=== PATIENT | female | born 1980 | race Caucasian/White ===

== ENCOUNTER 2024-10-23 23:13 | Emergency (ER) | payer MEDICAID, SELFPAY ==
[2024-10-23 23:13] VITALS: BMI 56.5
[2024-10-23 23:29] VITALS: BP 130/78; PULSE 88; RESP 18; TEMP 36.6; O2SAT 99
--- NOTE | 2024-10-23 23:32 | XR_ITS ---
EXAMINATION: Ankle, left 3 views . Technique: Ankle AP, oblique, lateral 3 views Date and time of exam: October 23, 1999 2538 hours Indications: Patient fell today with injury to ankle, ankle pain. Findings: Acute fracture distal fibular shaft No significant displacement No ankle dislocation Impression: Acute fracture distal fibular shaft
--- NOTE | 2024-10-23 23:33 | EDNOTE_ITS ---
Lower Extremity Injury RME/HPI General Chief Complaint: Fall Stated Complaint: FELL, LEFT ANKLE /LEG INJURY Time Seen by Provider: 10/23/24 23:31 Source: patient, RN notes reviewed and old records reviewed Arrival date/time: 10/23/24 23:13 Mode of arrival: wheelchair Limitations: no limitations RME / HPI RME / HPI Narrative: 44yof presents to ED for ankle pain s/p injury tonight. Patient reports she tripped while walking and rolled her left ankle, c/o lateral pain and swelling. No deformity or numbness/tingling reported. 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 Related Data Home Medications ?Medication ?Instructions ?Recorded ?Confirmed hydrocodone 10 mg-acetaminophen 1 tab PO PRN PRN Pain 08/17/18 10/18/19 325 mg tablet ([place]) dicyclomine 10 mg/mL intramuscular 20 mg PRN PRN Abdominal Pain 11/27/18 10/18/19 solution (Bentyl) tizanidine 4 mg capsule (Zanaflex) 4 mg PO HS 11/27/18 10/18/19 vitamin D3 500 unit-vit K 500 See Rx Instructions .Route .COMPLEX 11/27/18 10/18/19 mcg-berberine 90 mg-hops 370 mg tablet Previous Rx's ?Medication ?Instructions ?Recorded acetaminophen 500 mg capsule 1,000 mg (2 x 500 mg) PO Q6H PRN 10/25/20 fever or pain #30 caps ibuprofen 800 mg tablet 800 mg PO TID PRN pain #30 tabs 10/25/20 diphenhydramine HCl 25 mg tablet 50 mg (2 x 25 mg) PO QID PRN 01/20/21 (Benadryl Allergy) allergy symptoms #30 tabs epinephrine 0.3 mg/0.3 mL 0.3 ml subcut .once PRN 01/20/21 injection, auto-injector hypersensitivity reaction #2 ea alprazolam 0.5 mg tablet (Xanax) 0.5 mg PO TID PRN sleep #30 tabs 01/24/21 ciprofloxacin HCl 500 mg tablet 500 mg PO BID #14 tabs 02/12/21 (Cipro) metronidazole 500 mg tablet 500 mg PO BID #14 tabs 02/12/21 (Flagyl) ibuprofen 600 mg tablet 600 mg PO Q6H PRN pain #30 tabs 10/23/24 Allergies Allergy/AdvReac Type Severity Reaction Status Date / Time aloe vera Allergy Severe HIVES Verified 02/22/22 08:37 erythromycin base Allergy Severe HIVES, Verified 02/22/22 08:37 ITCHING morphine Allergy Severe itching Verified 02/22/22 08:37 and rash Review of Systems Review of Systems Systems Reviewed: All systems reviewed, normal except as documented Musculoskeletal Musculoskeletal: Reports arthralgias, Denies deformity, Reports joint swelling, Reports limited range of motion, Denies numbness and Denies tingling Neurologic Neurologic: Denies numbness and Denies tingling Past Medical History Past Medical History CARDIAC: Positive Hypercholesterolemia and Hypertension GASTROINTESTINAL: Positive Obesity ENDOCRINE: Positive Hypothyroidism Surgical History SURGICAL: Positive Hx Cholecystectomy OTHER SURGICAL HX: back surgery Social History SMOKING STATUS: Current every day smoker (vapes) SUBSTANCE USE: does not use ALCOHOL: Never ED Exam General Limitations: Present no limitations General appearance: Present alert, in no apparent distress and obese Head Head exam: Present atraumatic and normocephalic Eye Eye exam: Present normal appearance, PERRL and EOMI ENT ENT exam: Present normal exam and mucous membranes moist Neck Neck exam: Present normal inspection and full ROM Chest Chest inspection: Present normal inspection and symmetric chest wall rise Respiratory Respiratory exam: Present normal lung sounds bilaterally; Absent respiratory distress Cardiovascular Cardiovascular exam: Present regular rate and normal rhythm Extremities Exam Extremities exam: Present other (Tenderness and swelling just proximal to left lateral ankle. Limited ROM 2/2 pain. Able to wiggle all toes. 2+ pedal pulses, sensation intact) Neurological Exam Neurological exam: Present alert and oriented X3 Psychiatric Psychiatric exam: Present normal affect and normal mood Skin Skin exam: Present warm, dry, intact and normal color Course Quality Measures none Orders Category Date Time Status Crutches .NOW Care 10/23/24 23:47 Completed Splint / Immobilizer STAT Care 10/23/24 23:47 Completed XR ankle comp LT min 3V Stat Exams 10/23/24 23:32 Completed HYDROcodone*/APAP 7.5/325 [[place] 7.5/325] Med 10/23/24 23:32 Discontinued 1 tab PO X1 ONE Vital Signs Vital signs: Vital Signs Temperature 98 F 10/23/24 23:29 Pulse Rate 88 10/23/24 23:29 Respiratory Rate 18 10/23/24 23:29 Blood Pressure 130/78 10/23/24 23:29 Pulse Oximetry (%) 99 10/23/24 23:29 Oxygen Delivery Method Room Air 10/23/24 23:29 Procedures -ED Orthopedic Splinting/Casting Injury #1: Side: left Lower Extremity Injury Location: lower leg Lower Extremity Immobilizer: posterior splint (Short leg) Other Orthopedic Equipment: crutches Splint Fabrication: Clinician Made Type: Posterior Leg Reason for Splint: Improve Function, Optimal Positioning, Pain Management, Prevent Deformities and Support Joint/Muscle Circulation Distal to Splint: Yes Movement Distal to Splint: Yes Senation Distal to Splint: Yes Tolerance: Tolerates Well Extremity Injury, Lower MDM Narrative MDM Narrative:: 44yof presents to ED for ankle pain s/p injury tonight. Patient reports she tri pped while walking and rolled her left ankle, c/o lateral pain and swelling. No deformity or numbness/tingling reported. 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 Patient is neurovascularly intact, compartments soft. Encouraged RICE therapy, pain management prn. Patient sees a pain management physician and has [place] at home. Ortho referral given for follow-up and further management. Stable for discharge, RTED precautions given. Patient data External records reviewed:: [facility] previous records (02/22/2022 ED visit for abdominal pain) Clinical information provided by:: patient Social determinants that could affect healthcare access:: other (specify) (Unemployed) Patient has the following chronic illnesses:: Obesity, hypertension How is presenting disease/condition affected by chronic disease/condition?: exacerbated by Evaluation data The following diagnostics were reviewed and interpreted by me:: radiology exam(s) Lab and/or radiology exams considered but not ordered:: None Interpretation Summary: Ankle x-rays: Distal fibula fracture per my read Medications / Prescriptions Medications or Prescriptions considered but not ordered:: None Medication administrations:: Medication Administration History Discontinued Medications Hydrocodone Bitart/Acetaminophen (Hydrocodone/Ap[place] 7.5/325 Tablet) 1 tab PO X1 ONE Stop: 10/23/24 23:33 Last Admin: 10/23/24 23:36 Dose: 1 tab Documented By: OA Above medication administered in ED Consultations Consultation(s) initiated? (list below): No Diagnosis Extremity Injury, Lower Differential Diagnosis: other (Fracture, dislocation, sprain, strain, contusion, MSK pain) Most likely diagnosis given after review of the tests above:: Left fibula fracture Admission Indicated Admission indicated?: not indicated Admission Request Was there a request for admission?: No Disposition Plan Disposition Plan: Discharge Discharge Attestation Discharge Attestation: The patient and all family members were given an opportunity to ask questions and understood the discharge instructions. Discharge instructions specifically effects, indications for sooner follow up or return to the emergency department, and the expected course of current diagnosis. Patient condition: Stable Discharge Plan Plan Patient Disposition: HOME (Self Care) Patient condition on transfer: Stable Prescriptions/Referrals Prescriptions/Med Rec: New ibuprofen 600 mg tablet 600 mg PO Q6H PRN (Reason: pain) Qty: 30 0RF No Action ibuprofen 800 mg tablet 800 mg PO TID PRN (Reason: pain) Qty: 30 0RF acetaminophen 500 mg capsule 1,000 mg PO Q6H PRN (Reason: fever or pain) Qty: 30 0RF epinephrine 0.3 mg/0.3 mL auto-injector 0.3 ml subcut .once PRN (Reason: hypersensitivity reaction) Qty: 2 0RF diphenhydramine HCl [Benadryl Allergy] 25 mg tablet 50 mg PO QID PRN (Reason: allergy symptoms) Qty: 30 0RF alprazolam [Xanax] 0.5 mg tablet 0.5 mg PO TID PRN (Reason: sleep) Qty: 30 0RF metronidazole [Flagyl] 500 mg tablet 500 mg PO BID Qty: 14 0RF ciprofloxacin HCl [Cipro] 500 mg tablet 500 mg PO BID Qty: 14 0RF hydrocodone-acetaminophen [[place]] 10-325 mg Tablet 1 tab PO PRN PRN (Reason: Pain) dicyclomine [Bentyl] 10 mg/mL Solution 20 mg PRN PRN (Reason: Abdominal Pain) tizanidine [Zanaflex] 4 mg Capsule 4 mg PO HS vit D3-vit E-ovmhgiydm-adtg [id number] wehh-ovo-up-mg Tablet See Rx Instructions .ROUTE .COMPLEX Rx Instructions: 50,000 units orally weekly Referrals: Dae Dorman MD [Physician] - In 1 week Problem List Clinical Impression: Fracture of distal end of left fibula Patient/Caregiver Discharge Instructions Education Materials: ED Ankle Fracture, Distal Fibula Print Language: Amharic Stand Alone Forms: Linda Award Info., Work/School Release, Patient Portal Info Letter PA/SCOURING PADS SUPERVISOR Supervising Physician PA/SCOURING PADS SUPERVISOR Supervising Physician: Felipe
[2024-10-23] MEDS: HYDROcodone/APAP 7.5/325 TABLET 1 TAB PO (23:36)
== END 2024-10-24 00:30 | disposition home or self-care (01) ==
PROVIDERS: Emergency Provider Emergency Medicine; PCP Nurse Practitioner Family
DX: S82.832A Other fracture of upper and lower end of left fibula, initial encounter for closed fracture (principal); W01.0XXA Fall on same level from slipping, tripping and stumbling without subsequent striking against object, initial encounter; Y93.01 Activity, walking, marching and hiking
CPT/HCPCS: 29515; 73610; 99283; A9270

== ENCOUNTER → 2024-12-09 | Outpatient (CLI) | payer MEDICAID, SELFPAY ==
--- NOTE | 2024-12-09 | XR_ITS ---
EXAMINATION: Ankle, left 3 views . Technique: Ankle AP, oblique, lateral 3 views Date and time of exam: December 09, 2024 1308 hrs. Indications: Left ankle fracture October 23, 2024 Findings: Significant partial healing fracture distal fibular shaft with stable and satisfactory alignment Impression: Significant partial healing fracture distal fibular shaft with stable and satisfactory alignment
== END | disposition home or self-care (01) ==
LOC: CDIM 11:52
PROVIDERS: PCP Family Medicine; Referring Provider Podiatrist; Visit Provider Podiatrist
DX: S82.402D Unspecified fracture of shaft of left fibula, subsequent encounter for closed fracture with routine healing (principal); X58.XXXD Exposure to other specified factors, subsequent encounter
CPT/HCPCS: 73610

== ENCOUNTER → 2025-02-10 | Outpatient (CLI) | payer MEDICAID, SELFPAY ==
--- NOTE | 2025-02-10 10:55 | XR_ITS ---
EXAMINATION: Ankle, left 3 views . Technique: Ankle AP, oblique, lateral 3 views Date and time of exam: February 10, 2025 1130 hours INDICATIONS: Acute ankle fractures October 23, 2024 FINDINGS: Significant bone fracture distal fibular shaft with stable and satisfactory alignment No ankle dislocation IMPRESSION: Significant healing fracture distal fibular shaft with stable and satisfactory alignment
== END | disposition home or self-care (01) ==
LOC: CDIM 10:37
PROVIDERS: PCP Physician Assistant Medical; Referring Provider Podiatrist; Visit Provider Podiatrist
DX: S82.402D Unspecified fracture of shaft of left fibula, subsequent encounter for closed fracture with routine healing (principal); X58.XXXD Exposure to other specified factors, subsequent encounter
CPT/HCPCS: 73610

== ENCOUNTER → 2025-03-25 | Outpatient (CLI) | payer MEDICAID, SELFPAY ==
--- NOTE | 2025-03-25 10:30 | XR_ITS ---
EXAMINATION: Ankle, left 3 views . Technique: Ankle AP, oblique, lateral 3 views Date and time of exam: March 25, 2025 1047 hours INDICATIONS: Acute ankle fracture October 23, 2024, distal fibular shaft fracture FINDINGS: Complete healing fracture distal fibular shaft compared with October 23, 2024 No new fracture No ankle dislocation IMPRESSION: Healed fracture distal fibular shaft with satisfactory alignment
== END | disposition home or self-care (01) ==
PROVIDERS: PCP Physician Assistant Medical; Referring Provider Podiatrist; Visit Provider Podiatrist
DX: S82.402K Unspecified fracture of shaft of left fibula, subsequent encounter for closed fracture with nonunion (principal); X58.XXXD Exposure to other specified factors, subsequent encounter
CPT/HCPCS: 73610

== ENCOUNTER 2025-03-26 14:02 | Emergency (ER) | payer MEDICAID, SELFPAY ==
[2025-03-26 14:03] VITALS: BMI 54.3
[2025-03-26 14:34] VITALS: BP 140/93; PULSE 120; RESP 18; TEMP 36.6; O2SAT 98
--- NOTE | 2025-03-26 14:52 | XR_ITS ---
Examination: Transvaginal ultrasound of the pelvis, complete Technique: Transvaginal sonographic images pelvis performed using green scale imaging Exam date and time: March 26, 2025 1545 hours INDICATIONS: Heavy vaginal bleeding beginning 3 days ago FINDINGS: Uterus 8.5 cm no uterine mass or intrauterine gestation 4 mm benign cyst in the endometrial canal Endometrial stripe 1.7 cm Ovaries obscured by bowel gas and by the patient's size IMPRESSION: Limited study No uterine mass or intrauterine gestation.
--- NOTE | 2025-03-26 14:54 | PD.EDVAGBL ---
ED OB Contraction Preg RMI/HPI General Chief complaint: Vaginal Bleeding Stated complaint: EXCESSIVE VAGINAL BLEEDING W/ BLOOD CLOTS Time Seen by Provider: 03/26/25 14:24 Arrival date/time: 03/26/25 14:02 Limitations: no limitations RME / HPI RME / HPI Narrative: 44-year-old female with past medical history of hypertension on GLP inhibitor for weight loss presents for evaluation of vaginal bleeding x 1 day. Patient reports intermittent pelvic cramping and states she is passing numerous clots the size of a half dollar . She endorses weakness. Denies nausea, vomiting, fever, chest pain. Patient reports last normal menstrual period x 3 days ago. Denies history of irregular vaginal bleeding. Patient states that she has been on the weight loss medication x 1 month with no reported side effects. Related Data Home Medications ?Medication ?Instructions ?Recorded ?Confirmed hydrocodone 10 mg-acetaminophen 1 tab PO PRN PRN Pain 08/17/18 10/18/19 325 mg tablet ([place]) dicyclomine 10 mg/mL intramuscular 20 mg PRN PRN Abdominal Pain 11/27/18 10/18/19 solution (Bentyl) tizanidine 4 mg capsule (Zanaflex) 4 mg PO HS 11/27/18 10/18/19 vitamin D3 500 unit-vit K 500 See Rx Instructions .Route .COMPLEX 11/27/18 10/18/19 mcg-berberine 90 mg-hops 370 mg tablet Previous Rx's ?Medication ?Instructions ?Recorded acetaminophen 500 mg capsule 1,000 mg (2 x 500 mg) PO Q6H PRN 10/25/20 fever or pain #30 caps ibuprofen 800 mg tablet 800 mg PO TID PRN pain #30 tabs 10/25/20 diphenhydramine HCl 25 mg tablet 50 mg (2 x 25 mg) PO QID PRN 01/20/21 (Benadryl Allergy) allergy symptoms #30 tabs epinephrine 0.3 mg/0.3 mL 0.3 ml subcut .once PRN 01/20/21 injection, auto-injector hypersensitivity reaction #2 ea alprazolam 0.5 mg tablet (Xanax) 0.5 mg PO TID PRN sleep #30 tabs 01/24/21 ciprofloxacin HCl 500 mg tablet 500 mg PO BID #14 tabs 02/12/21 (Cipro) metronidazole 500 mg tablet 500 mg PO BID #14 tabs 02/12/21 (Flagyl) ibuprofen 600 mg tablet 600 mg PO Q6H PRN pain #30 tabs 10/23/24 ondansetron 4 mg disintegrating 4 mg PO Q8H PRN nausea and 03/26/25 tablet vomiting #14 tabs Allergies Allergy/AdvReac Type Severity Reaction Status Date / Time aloe vera Allergy Severe HIVES Verified 03/26/25 14:05 erythromycin base Allergy Severe HIVES, Verified 03/26/25 14:05 ITCHING morphine Allergy Severe itching Verified 03/26/25 14:05 and rash Review of Systems Constitutional Constitutional: Denies chills, Denies fever(s), Denies headache(s), Denies lethargy and Denies night sweats Eyes Eyes: Denies blurry vision and Denies change in vision ENT Ears, Nose, Mouth, and Throat: Denies disequilibrium, Denies dizziness, Denies headache(s) and Denies neck pain Cardiovascular Cardiovascular: Denies chest pain, Denies dyspnea and Denies palpitations Respiratory Respiratory: Denies cough, Denies dyspnea and Denies wheezing Gastrointestinal Gastrointestinal: Denies abdominal pain, Denies diarrhea, Denies loose stools, Denies melena, Denies nausea and Denies vomiting Genitourinary Genitourinary: Reports abnormal vaginal bleeding, Denies dysuria, Denies flank pain, Reports metrorrhagia, Reports pelvic pain, Denies vaginal discharge, Denies vaginal odor and Denies vaginal pruritus Musculoskeletal Musculoskeletal: Reports back pain, Denies myalgias, Denies neck pain, Denies numbness, Denies stiffness and Denies tingling Integumentary/Breasts Skin/Breast: Denies new lesions and Denies rash Neurologic Neurologic: Denies disequilibrium, Denies dizziness, Denies localized weakness, Denies headache(s), Denies numbness and Denies tingling Endocrine Endocrine: Denies palpitations Allergic/Immunologic Allergic/Immunologic: Denies wheezing Past Medical History Past Medical History CARDIAC: Positive Hypercholesterolemia and Hypertension; Negative Cardiac Disorders or Congestive Heart Failure RESPIRATORY: Negative Chronic Obstructive Pulmonary Disease (COPD) or Asthma GASTROINTESTINAL: Positive Gastrointestinal Disorders, Gall Bladder Disease and Obesity GENITOURINARY: Negative Renal Disease ENDOCRINE: Positive Hypothyroidism; Negative Diabetes Mellitus Type 1 or Diabetes Mellitus Type 2 HEMATOLOGIC: Negative Sickle Cell Disease Social History SMOKING STATUS: Current every day smoker SUBSTANCE USE: does not use ED Exam General Limitations: Present no limitations General appearance: Present alert and in no apparent distress Head Head exam: Present atraumatic and normocephalic Eye Eye exam: Present normal appearance and EOMI; Absent scleral icterus ENT ENT exam: Present normal exam, normal oropharynx and mucous membranes moist Neck Neck exam: Present normal inspection and full ROM Chest Chest inspection: Present normal inspection and symmetric chest wall rise Respiratory Respiratory exam: Present normal lung sounds bilaterally; Absent respiratory distress Cardiovascular Cardiovascular exam: Present tachycardia and +S1 Abdominal Exam Abdominal exam: Absent soft, distention, tenderness, guarding, rebound or rigidity External exam: Absent erythema, tenderness or swelling Speculum exam: Present vaginal bleeding; Absent laceration Extremities Exam Extremities exam: Present normal inspection and full ROM Back Exam Back exam: Present normal inspection; Absent full ROM, tenderness, CVA tenderness (R) or CVA tenderness (L) Neurological Exam Neurological exam: Present alert and normal gait Psychiatric Psychiatric exam: Present normal affect Skin Skin exam: Present warm and dry Course Quality Measures none Orders Category Date Time Status US transvaginal Stat Exams 03/26/25 14:52 Completed CBC Stat Lab 03/26/25 15:03 Completed CMP [Comprehensive Metabolic Panel] Stat Lab 03/26/25 15:03 Completed HCG Qualitative,Urine Stat Lab 03/26/25 14:50 Completed UA [Urinalysis] Stat Lab 03/26/25 14:50 Completed Acetaminophen Tab [Tylenol Tab] Med 03/26/25 14:52 Discontinued 650 mg PO X1 ONE Vital Signs Vital signs: Vital Signs Temperature 98 F 03/26/25 14:34 Pulse Rate 120 H 03/26/25 14:34 Respiratory Rate 18 03/26/25 14:34 Blood Pressure 140/93 H 03/26/25 14:34 Pulse Oximetry (%) 98 03/26/25 14:34 Oxygen Delivery Method Room Air 03/26/25 14:34 Pulse ox 98% on room air, within normal limits. Vaginal Bleeding MDM Narrative MDM Narrative: Very pleasant 44-year-old female presented for vaginal bleeding. Patient reported last menstrual cycle ended last week. Vital signs significant for tachycardia. Patient denied chest pain and cardiovascular history therefore cardiac workup was initially deferred. Labs reassuring as patient was not anemic. No evidence of sepsis or endorgan damage. Transvaginal ultrasound limited given patient's body habitus, however no intrauterine and negative hCG therefore less concern for ectopic or missed . Pelvic exam today showed scant blood clots in the vaginal canal with no laceration. Cervical os was closed. Ultimately the patient reported that her symptoms improved while she was in the ED. We discussed that she needs to follow-up with her primary care provider within the next week and return to the ED if her symptoms worsen or change. Patient stable at time of discharge. Patient data External records reviewed:: [facility] previous records Clinical information provided by:: patient and family Social determinants that could affect healthcare access:: other (specify) Patient has the following chronic illnesses:: Hypertension. How is presenting disease/condition affected by chronic disease/condition?: uneffected by Evaluation data The following diagnostics were reviewed and interpreted by me:: lab results and radiology exam(s) Lab and/or radiology exams considered but not ordered:: Considered not ordered. Interpretation Summary: Mild leukocytosis without shift. No anemia requiring emergent transfusion. Normal coags. No gross electrolyte abnormality or evidence of endorgan damage. UA significant for hematuria without sign of cystitis. No pancreatitis. US read: FINDINGS: Uterus 8.5 cm no uterine mass or intrauterine gestation 4 mm benign cyst in the endometrial canal Endometrial stripe 1.7 cm Ovaries obscured by bowel gas and by the patient's size IMPRESSION: Limited study No uterine mass or intrauterine gestation. Medications / Prescriptions Medications or Prescriptions considered but not ordered:: Rx given. Medication administrations:: Medication Administration History Discontinued Medications Acetaminophen (Acetaminophen 325 Mg Tablet) 650 mg PO X1 ONE Stop: 03/26/25 14:53 Last Admin: 03/26/25 14:56 Dose: 650 mg Documented By: CON Rx given. Consultations Consultation(s) initiated? (list below): No Diagnosis Vaginal Bleeding Differential Diagnosis: dysfunctional uterine bleeding, menometrorrhagia, ectopic without intrauterine , vaginal bleeding and other Most likely diagnosis given after review of the tests above:: Menometrorrhagia. Admission Indicated Admission indicated?: not indicated Admission Request Was there a request for admission?: No Disposition Plan Disposition Plan: Discharge Discharge Attestation Discharge Attestation: The patient and all family members were given an opportunity to ask questions and understood the discharge instructions. Discharge instructions specifically effects, indications for sooner follow up or return to the emergency department, and the expected course of current diagnosis. Patient condition: Stable Discharge Plan Plan Patient Disposition: HOME (Self Care) Discharge Disposition comment: stable Prescriptions/Referrals Prescriptions/Med Rec: New ondansetron 4 mg tablet,disintegrating 4 mg PO Q8H PRN (Reason: nausea and vomiting) Qty: 14 0RF No Action ibuprofen 800 mg tablet 800 mg PO TID PRN (Reason: pain) Qty: 30 0RF acetaminophen 500 mg capsule 1,000 mg PO Q6H PRN (Reason: fever or pain) Qty: 30 0RF epinephrine 0.3 mg/0.3 mL auto-injector 0.3 ml subcut .once PRN (Reason: hypersensitivity reaction) Qty: 2 0RF diphenhydramine HCl [Benadryl Allergy] 25 mg tablet 50 mg PO QID PRN (Reason: allergy symptoms) Qty: 30 0RF alprazolam [Xanax] 0.5 mg tablet 0.5 mg PO TID PRN (Reason: sleep) Qty: 30 0RF metronidazole [Flagyl] 500 mg tablet 500 mg PO BID Qty: 14 0RF ciprofloxacin HCl [Cipro] 500 mg tablet 500 mg PO BID Qty: 14 0RF hydrocodone-acetaminophen [[place]] 10-325 mg Tablet 1 tab PO PRN PRN (Reason: Pain) dicyclomine [Bentyl] 10 mg/mL Solution 20 mg PRN PRN (Reason: Abdominal Pain) tizanidine [Zanaflex] 4 mg Capsule 4 mg PO HS vit D3-vit D-[id number]-nhfz [id number] iqgs-rhh-kp-mg Tablet See Rx Instructions .ROUTE .COMPLEX Rx Instructions: 50,000 units orally weekly ibuprofen 600 mg tablet 600 mg PO Q6H PRN (Reason: pain) Qty: 30 0RF Referrals: Carrie Han PA-C [Primary Care Provider] - In 1 week Problem List Clinical Impression: Abdominal pain, Vaginal bleeding Impression comment: Follow-up with [facility]PER within the week for further recommendation. Follow-up with primary care for further recommendation regarding GLP inhibitor plan. Take multivitamin as discussed. Continue to take Tylenol or ibuprofen as needed for pain. Take Zofran as needed for nausea vomiting. Return to the ED if your symptoms worsen or change. Patient/Caregiver Discharge Instructions Education Materials: ED Dysfunctional Uterine Bleeding Print Language: Divehi Stand Alone Forms: Linda Felton Info., Patient Portal Info Letter PA/COMMUNICATIONS OFFICER Supervising Physician PA/COMMUNICATIONS OFFICER Supervising Physician: Dr. Friedman
[2025-03-26] MEDS: ACETAMINOPHEN 325 MG TABLET 650 MG PO (14:56)
[2025-03-26 15:03] LABS: Collection Type, Urine Clean Catch
[2025-03-26 15:12] LABS: HCG Qualitative,Urine Negative
[2025-03-26 15:16] LABS: Basophils # (Auto) 0.1 Thou/mm3 (0.0-0.2); Basophils % (Auto) 1 % (0-2.5); Eosinophils # (Auto) 0.3 Thou/mm3 (0.0-0.5); Eosinophils % (Auto) 3 % (0-10); Hematocrit 40.8 % (36.0-46.0); Hemoglobin 13.9 g/dL (12.0-16.0); Immature Granulocytes % (Auto) 0 % (0-0); Immature Granulocytes Auto 0.04 Thou/mm3 (0.00-0.00); Lymphocytes # (Auto) 3.3 Thou/mm3 (1.0-4.8); Lymphocytes % (Auto) 27 % (10-50); Mean Corpuscular HGB Conc 34.1 g/dl (31.0-37.0); Mean Corpuscular Hemoglobin 27.3 pg (25.0-35.0); Mean Corpuscular Volume 80 fL (80-100); Monocytes # (Auto) 0.8 Thou/mm3 (0.0-0.8); Monocytes % (Auto) 6 % (0-12); Neutrophils # (Auto) 7.7 Thou/mm3 (1.8-7.7); Neutrophils % (Auto) 63 % (37-80); Nucleated Red Blood Cell % 0 /100 WBC (0); Platelet Count 386 Thou/mm3 (140-440); RDW Standard Deviation 38.7 fL (36.4-46.3); White Blood Count 12.2 Thou/mm3 (3.6-11.0)
[2025-03-26 15:26] LABS: Bilirubin,Urine Negative (Negative); Blood,Urine 3+ (Negative); Glucose, Urine Negative (Negative); Ketones,Urine Trace (Negative); Leukocyte Esterase,Urine Negative (Negative); Nitrite,Urine Negative (Negative); PH,Urine 5.5 (5.0-7.0); Protein,Urine 1+ (Neg - Trace); RBC,Urine 5258 /hpf (0-3); Specific Gravity,Urine 1.029 (1.001-1.035); Squamous Epithelial Cell,Urine 4 /hpf (0-5); Urobilinogen,Urine Negative mg/dL (0.0-1.0); WBC,Urine 5 /hpf (0-5)
[2025-03-26 15:34] LABS: Color,Urine Lt-Yellow (Lt Yel-Yel)
[2025-03-26 15:35] LABS: Clarity,Urine Cloudy (Clear/Hazy)
[2025-03-26 15:41] LABS: Alanine Aminotransferase 14 U/L (10-49); Albumin, Serum 4.5 gm/dL (3.5-5.0); Albumin/Globulin Ratio 1.7 (1.2-2.2); Alkaline Phosphatase 72 U/L (46-116); Anion Gap 9 (7-16); Aspartate Amino Transferase 15 U/L (0-34); BUN/Creatinine Ratio 8 Ratio (12-20); Bilirubin,Total 0.5 mg/dL (0.3-1.2); Blood Urea Nitrogen 8 mg/dL (9-23); Carbon Dioxide 25.7 mMol/L (20.0-31.0); Chloride 104 mMol/L (98-107); Globulin 2.6 gm/dL (2.3-3.5); Glucose 122 mg/dL (74-106); Osmolality,Calculated 276 (275-295); Potassium 4.4 mMol/L (3.4-5.1); Sodium 139 mMol/L (136-145); Total Protein 7.1 gm/dL (5.7-8.2); eGFR > 60 See Note
== END 2025-03-26 17:49 | disposition home or self-care (01) ==
PROVIDERS: Physician Assistant; Emergency Provider Emergency Medicine; PCP Physician Assistant Medical
DX: N93.9 Abnormal uterine and vaginal bleeding, unspecified (principal); R10.2 Pelvic and perineal pain; I10 Essential (primary) hypertension; N85.8 Other specified noninflammatory disorders of uterus
CPT/HCPCS: 36415; 76830; 80053; 81001; 81025; 85025; 99284; A9270

== ENCOUNTER → 2025-04-24 | Outpatient (CLI) | payer MEDICAID, SELFPAY ==
--- NOTE | 2025-04-24 10:39 | XR_ITS ---
Examination: Screening digital mammography, bilateral Computer aided detection 3-D breast Tomosynthesis, bilateral Date and time of exam: April 24, 2025 1044 hours Compared to mammograms dating to August 15, 2021 Indication: Screening Technique: Nonmagnified MLO, CC views of the breasts to been obtained, reconstructed from 3-D Tomosynthesis images. R2 computer aided detection program utilized for evaluation of suspicious masses and/or abnormal calcifications. 3-D Tomosynthesis images obtained. Findings: Scattered areas of fibroglandular density. Focal asymmetry outer right breast again depicted Benign calcifications Impression: BI-RADS Category 0: Incomplete: Need additional imaging evaluation Recommend follow-up right breast sonography
--- NOTE | 2025-04-24 10:53 | XR_ITS ---
Examination: Cervical spine 3 views Technique one AP lateral coned AP odontoid cervical spine 3 views Date and time: April 24, 2025 1118 hours INDICATIONS: Neck pain beginning 1998. FINDINGS: Reversal normal cervical lordosis. No cervical fracture. Intact odontoid. Moderate degenerative disc disease C4-C5, C5-C6 IMPRESSION: Moderate degenerative disc disease C4-C5, C5-C6 with anterior osteophyte formation
--- NOTE | 2025-04-24 10:53 | XR_ITS ---
Examination: Thoracic spine 3 views Technique one AP lateral coned lateral upper dorsal spine 3 views Date and time: April 24, 2025 1128 hours INDICATIONS: Upper back pain beginning 1998 FINDINGS: Upper thoracic dextroscoliosis 17 degrees thoracolumbar levoscoliosis 15 degrees No thoracic fracture Mild to moderate diffuse thoracic degenerative disc disease Prominent thoracic spondylosis IMPRESSION: Mild to moderate diffuse thoracic degenerative disc disease
== END | disposition home or self-care (01) ==
LOC: CDIM 10:32
PROVIDERS: Referring Provider Physician Assistant Medical; Visit Provider Physician Assistant Medical
DX: Z12.31 Encounter for screening mammogram for malignant neoplasm of breast (principal); R92.8 Other abnormal and inconclusive findings on diagnostic imaging of breast; M50.321 Other cervical disc degeneration at C4-C5 level; M25.78 Osteophyte, vertebrae; M51.34 Other intervertebral disc degeneration, thoracic region
CPT/HCPCS: 72040; 72072; 77063; 77067